=== PATIENT | female | born 1985 | race Caucasian/White ===

== ENCOUNTER → 2017-06-10 | Outpatient (REF) ==
[~2017-06-10] MED LIST: CLARITIN 1010 MG/TAB PO; IBU800 M1 PO; MARNATAL-F1 CAP PO; MASON NATURAL1200 MG PO; PERCOCET 325 MG1 TA2 PO; PROBIOTICA100 Milli1 PO; PROTONIX20 MG PO; ZANTAC 150MG T150 MG PO; ZYRTEC 10MG10 MG PO
== END ==
LOC: WSOH 10:41
DX: Z02.89 Encounter for other administrative examinations (principal)

== ENCOUNTER → 2017-06-19 | Outpatient (CLI) | payer OTHER | LOC: COL.RAD 08:03 | DX: R42 Dizziness and giddiness (principal) ==

== ENCOUNTER → 2017-07-26 | Outpatient (REF) | LOC: WSOH 14:15 | DX: Z02.89 Encounter for other administrative examinations (principal) ==

== ENCOUNTER 2018-10-16 07:03 | Inpatient (IN) | payer OTHER ==
[2018-10-16] VITALS (39 sets, daily range): BP systolic 109–139; BP diastolic 55–78; PULSE 69–90; TEMP 97.9–98.7
[~2018-10-16] VITALS: Ht 170.2 cm; Wt 86.4 kg
[2018-10-16] MEDS ORDERED: TYLENOL 500MG500 MG PO (07:26)
[2018-10-16 09:16] LABS: BASO % 0.1 % (0.0-2.0); EOS # 0.1 (0.0-0.7); EOS % 0.6 % (0-4.0); GRAN # 6.7 (1.4-6.5); GRAN % 81.1 % (42.2-75.2); HEMATOCRIT 37.9 % (37.0-47.0); HEMOGLOBIN 12.6 g/dl (12.5-16.0); LYMPH # 1.1 (1.2-3.4); LYMPH % 12.7 % (20.0-51.0); MEAN CELL VOLUME 92 fl (80.0-100.0); MEAN CORPUSCULAR HEMOGLOBIN 30 pg (27.0-31.0); MEAN CORPUSCULAR HGB CONC 33 g/dl (33.0-37.0); MEAN PLATELET VOLUME 10.2 fl (7.4-10.4); MONO # 0.4 (0.1-0.6); PLATELET COUNT 231 K/mm3 (130-400); RED BLOOD COUNT 4.14 M/mm3 (4.10-5.30); REDCELL DISTRIBUTION WIDTH-CV 14.5 % (11.5-14.5)
[2018-10-16] MEDS ORDERED: IBU600 MG PO (15:16)
[2018-10-17 08:08] VITALS: BP 126/61; PULSE 84; TEMP 98.1
== END 2018-10-17 16:30 | disposition home or self-care (01) | DRG 807 ==
LOC: LDR 07:03 → OB 18:30
PROVIDERS: Obstetrics & Gynecology
PROC: 10E0XZZ Delivery of Products of Conception, External Approach (ICD-10-PCS; principal; 2018-10-16)
PROC: 0KQM0ZZ Repair Perineum Muscle, Open Approach (ICD-10-PCS; 2018-10-16)
DX: O75.89 Other specified complications of labor and delivery (principal); Z37.0 Single live birth; O70.1 Second degree perineal laceration during delivery; Z3A.38 38 weeks gestation of pregnancy; O69.81X0 Labor and delivery complicated by cord around neck, without compression, not applicable or unspecified
CPT/HCPCS: J2590; J2795; J7120

== ENCOUNTER → 2020-09-24 | Outpatient (CLI) | payer OTHER ==
[~2020-09-24] MED LIST changes: +IBU600 MG PO; +TYLENOL 500MG500 MG PO
== END ==
LOC: ZCOL.LAB 17:34
DX: U07.1 COVID-19 (principal)